=== PATIENT | male | born 1945 | race Caucasian/White ===

== ENCOUNTER 2020-02-03 06:28 | Outpatient (CLI) | payer MEDICARE, OTHER ==
[2020-02-04 12:51] LABS: SARS-CoV-2 MS2 Positive; SARS-CoV-2 N Gene Negative; SARS-CoV-2 S Gene Negative; SARS-CoV-2 orf1ab Negative
== END 2020-02-03 06:29 | disposition home or self-care (01) ==
LOC: LABBT 06:28
PROVIDERS: ATTEND Family Medicine
DX: Z01.812 Encounter for preprocedural laboratory examination (principal); Z11.59 Encounter for screening for other viral diseases
CPT/HCPCS: 87635; U0003

== ENCOUNTER 2020-02-08 06:14 | Day surgery (SDC) | payer MEDICARE ==
[2020-02-02 11:29] VITALS: BMI 34.4
[2020-02-08] MEDS ORDERED: EPINEPHrine 0.3 MG in Ophthalmic Irrigation Solution 500 ML IRR SCH (06:18)
[2020-02-08] MEDS ORDERED: Fentanyl 100 MCG/2 ML VIAL ONE (06:35)
[2020-02-08] MEDS ORDERED: Midazolam HCl 2 mg/2 ml Vial ONE (06:35)
[2020-02-08] MEDS ORDERED: Phenylephrine 2.5% Ophth Soln 5 ML BOT ONE (06:42)
[2020-02-08] MEDS ORDERED: Cyclopentolate 1% Opth Drop 2 ML BOT ONE (06:42)
--- NOTE | 2020-02-08 09:11 | OP ---
DATE OF PROCEDURE: 02/08/2020 PREOPERATIVE DIAGNOSIS: Macular hole, left eye. POSTOPERATIVE DIAGNOSIS: Macular hole, left eye. PROCEDURE PERFORMED: 1. 25-gauge pars plana vitrectomy, left eye. 2. Internal limiting membrane removal, left eye. 3. 15% SF6 fill, left eye. ESTIMATED BLOOD LOSS: None. SPECIMENS REMOVED: None. COMPLICATIONS: None. ANESTHESIA: MAC with subtenon's block. SUMMARY OF OPERATION: The patient was identified in the preoperative holding area. The correct eye being the left eye was marked for surgery. The patient was taken to the operating room, where MAC anesthesia was induced. The left eye was prepped and draped in usual sterile ophthalmic fashion for surgery. A wire clip lid speculum was placed. An inferonasal conjunctival peritomy was fashioned with Elli scissors after administration of subtenon's block. The block consisted of 1:1 ratio of 4% lidocaine and 0.75% Marcaine. A total of 5 mL was administered. A standard 25-gauge pars plana vitrectomy platform was fashioned with trocars placed approximately 4 mm from the limbus. The infusion was noted to be within the vitreous cavity prior to being turned on to infusion pressure of 30 mmHg. The light pipe and microvitrector were introduced in the eye under visualization of the BIOM viewing system. A careful core vitrectomy was performed followed by injection of Kenalog. A gentle posterior vitreous detachment was subsequently created followed by completion of a peripheral shave vitrectomy. Following vitrectomy, the ICG dye was used to stain the internal limiting membrane. Using the Hugh ILM forceps, the internal limiting membrane was peeled in a circumferential fashion about the fovea. The peel extended approximately 2 disk diameters in radius circumferentially. Following peeling, the microvitrector was reintroduced in the eye to remove the residual vitreous debris. A 360-degree scleral depressed exam of periphery revealed no defects. An air-fluid exchange was performed followed by an air-gas exchange with 15% SF6. The cannulas were removed from all sclerotomies with the superior two sclerotomies being sutured with 8-0 Vicryl suture. Following suturing, all sclerotomies were noted to be gas tight. Subconjunctival Ancef and Kenalog were injected. The wire clip lid speculum was removed followed by application of TobraDex ophthalmic ointment and a light patch and shield. The patient tolerated the procedure well taken to outpatient recovery area in good condition. Job ID: [id number]
[2020-02-08] MEDS ORDERED: PROPOFOL 200 MG/20 ML VIAL ONE (11:57)
[2020-02-08] MEDS ORDERED: CEFAZOLIN 1 GM VIAL ONE (11:57)
[2020-02-08] MEDS ORDERED: Tobramycin/Dexamethasone Ophth Oint 3.5 GM TUBE ONE (11:57)
[2020-02-08] MEDS ORDERED: Lidocaine 1% PF 5 ML VIAL ONE (11:57)
[2020-02-08] MEDS ORDERED: Triamcinolone 40 MG/ML VIAL ONE (11:57)
[2020-02-08] MEDS ORDERED: Indocyanine Green 25 MG/10 ML VIAL ONE (11:57)
[2020-02-08] MEDS ORDERED: Bupivacaine PF 0.75% SDV 10 ML ONE (11:57)
[2020-02-08] MEDS ORDERED: Lidocaine 4% PF 5 ML AMP ONE (11:57)
== END 2020-02-08 09:11 | disposition home or self-care (01) ==
LOC: SDC 06:14
PROVIDERS: ATTEND Ophthalmology Retina Specialist
PROC: 08T53ZZ Resection of Left Vitreous, Percutaneous Approach (ICD-10-PCS; principal; 2020-02-08)
PROC: 08NF3ZZ Release Left Retina, Percutaneous Approach (ICD-10-PCS; 2020-02-08)
DX: H35.342 Macular cyst, hole, or pseudohole, left eye (principal); Z79.899 Other long term (current) drug therapy
CPT/HCPCS: 67025; J0171; J0690; J2001; J2250; J2704; J3010; J3301; J3490